=== PATIENT | male | born 1975 | race Caucasian/White ===

== ENCOUNTER 2019-06-04 11:40 | Day surgery (SDC) | payer BC ==
[2019-06-03 09:41] VITALS: BMI 27.3
[2019-06-04] MEDS ORDERED: PROPOFOL 20 ML ONE (14:14)
[2019-06-04] MEDS ORDERED: MIDAZOLAM HCL 2 MG/2 ML SINGLE DOSE VIAL ONE (14:14)
[2019-06-04] MEDS ORDERED: LIDOCAINE HCL/PF 2% SDV 5ML VIAL ONE (14:16)
[2019-06-04] MEDS ORDERED: ONDANSETRON 4 MG/2 ML VIAL ONE (14:16)
[2019-06-04] MEDS ORDERED: DEXAMETHASONE SOD PHOSPHATE 4 MG/1 ML VIAL ONE (14:16)
[2019-06-04] MEDS ORDERED: ceFAZolin SODIUM 1 GM VIAL ONE (14:49)
[2019-06-04] MEDS ORDERED: ONDANSETRON 4 MG/2 ML VIAL IVPUSH PRN (15:24)
[2019-06-04] MEDS ORDERED: oxyCODONE HCL 5 MG TABLET PO PRN ×2 (15:24)
[2019-06-04] MEDS ORDERED: PROMETHAZINE HCL 25 MG/1 ML VIAL IVPUSH PRN (15:24)
[2019-06-04] MEDS ORDERED: oxyCODONE HCL 5 MG TABLET ONE (16:34)
[2019-06-04 16:40] VITALS: TEMP 97.6
[2019-06-04 16:47] VITALS: BP 124/77; PULSE 68
--- NOTE | 2019-06-10 18:13 | OP ---
DATE OF OPERATION: 06/04/2019 PREOPERATIVE DIAGNOSIS: Left small finger proximal interphalangeal reducible dislocation/subluxation. POSTOPERATIVE DIAGNOSIS: Left small finger proximal interphalangeal reducible dislocation/subluxation with extensor tendon partial tear. OPERATIVE PROCEDURES: 1. Left small finger open reduction of proximal interphalangeal dislocation. 2. Repair of extensor tendon left small finger. SURGEON: Camille Green MD WAREHOUSE ORDER PULLER: KATEY Butts ANESTHESIA: General. COMPLICATIONS: None. ESTIMATED BLOOD LOSS: Minimal. INDICATION FOR PROCEDURE: The patient is a 43-year-old male with above finding indicated for operative treatment. Risks, benefits, alternatives were discussed with the patient at length. Proper informed consent was obtained. DESCRIPTION OF PROCEDURE: After proper identification of patient and correct operative site, patient brought to the operating room and placed supine on the table, bony prominences well padded. General anesthesia was given. Left upper extremity was prepped and draped in the usual sterile fashion. Well-padded tourniquet was placed with a sterile prep. Esmarch bandage used to exsanguinate left upper extremity. Tourniquet was inflated to 250 mmHg. Curvilinear incision was made over the dorsal aspect of the proximal interphalangeal joint. Incision was taken sharply through the skin with blunt and sharp dissection through subcutaneous tissues. The head of the proximal phalanx was visualized as soon as we opened the skin, and the extensor tendon was ruptured on the radial aspect, and the lateral bands and collateral ligament were trapped in the joint. These were freed, and the triangular ligament/extensor tendon was repaired in this area. The joint was able to be reduced. Full range of motion was achieved with no stress on the tendon repair. The wound was irrigated and repaired with 5-0 absorbable plain gut suture as well as Dermabond. Sterile dressings were applied. Evan Valenzuela, the assistant loan processor, was integral throughout the procedure. Procedure could not have been performed without a skilled operative assistant loan processor. CAMILLE GREEN M.D. [id number]
== END 2019-06-04 17:00 | disposition home or self-care (01) ==
LOC: FASU 11:40
PROVIDERS: ATTEND Orthopaedic Surgery Hand Surgery
PROC: 0LQ80ZZ Repair Left Hand Tendon, Open Approach (ICD-10-PCS; 2019-06-04)
PROC: 0RSX0ZZ Reposition Left Finger Phalangeal Joint, Open Approach (ICD-10-PCS; principal; 2019-06-04 14:57)
DX: S63.287A Dislocation of proximal interphalangeal joint of left little finger, initial encounter (principal); S66.307A Unspecified injury of extensor muscle, fascia and tendon of left little finger at wrist and hand level, initial encounter; X58.XXXA Exposure to other specified factors, initial encounter; Y93.9 Activity, unspecified; Y92.9 Unspecified place or not applicable
CPT/HCPCS: 94760